=== PATIENT | female | born 1995 | race American Indian/Alaskan Native ===

== ENCOUNTER 2017-07-13 15:06 | Emergency (ER) | payer SELFPAY ==
[2017-07-13 16:41] VITALS: BP 118/74
[2017-07-13 18:46] LABS: Bilirubin,Urine NEG (Negative); Blood,Urine NEG (Negative); Color,Urine Yellow (Yellow); Mucus,Urine 3+ /HPF; RBC,Urine < 1.0 /HPF (0.0-6.0); Urobilinogen,Urine < 2.0 mg/dL (<2.0)
[2017-07-13 18:51] LABS: HCG Qualitative,Urine Positive (Negative)
--- NOTE | 2017-07-13 21:07 | Emergency Department Report ---
Chief Complaint: Abdominal Pain Stated Complaint: ABD PAIN Time Seen by Provider: 07/13/17 19:58 - HPI History of Present Illness: The patient is a 21-year-old female , unknown EGA, who presents for evaluation of abdominal pain. The patient reports cramping lower abdominal pain for the past 2 weeks. She states that her symptoms progressed throughout the past one week, and since she has experienced generalized myalgias. The patient denies fever, chills, night sweats, chest pain, dyspnea, trauma to the abdomen, vaginal bleeding, leakage of fluid from the vagina, vaginal discharge, diarrhea, blood in the stool, dark tarry stool, dysuria, hematuria, flank pain. - Exam Vital Signs: Vital Signs 07/13/17 16:36 Temperature 98.8 F Pulse Rate 85 Respiratory 18 Rate Blood Pressure 118/74 O2 Sat by Pulse 98 Oximetry MSE screening note: Focused history and physical exam performed. Due to findings the following was ordered: ED Medical Decision Making - Medical Decision Making Initial lab tests revealed a positive urine present tests. The patient was informed of positive urine test. She was recommended to receive serum beta hCG and ultrasound of the pelvis to investigate if positive for intrauterine or ectopic . The patient refuses phlebotomy collection of blood and ultrasound secondary to concerns regarding billing. The patient demanded to speak with billing and registration prior to any further diagnostic tests or treatments. The patient is informed of risks of refusal of further care and evaluation, including potential risk of increased morbidity and/or , versus the benefits of further treatment and evaluation of her with ultrasound, and she continued to decline further evaluation or treatment. She was asked by the nursing staff to relocate to the [facility] from the medical screening room while considering whether to proceed with recommended evaluation and treatment plan/while speaking with registration/billing. She refused to relocate, stating that she did not want to relocate to the waiting room because the seats were not comfortable, and that she in fact needed to be placed in a room in the ED more comfortable than the room she was currently in. She was informed of the lack of an additional room due to overcapacity and inability to accommodate her request for more comfortable room/bed. The patient became upset , uncooperative, and belligerent. The patient verbally insulted multiple ED staff and became disruptive to ability of staff to monitor and treat other ED patients. Security was called and the patient became even agitated. As the patient is competent to refuse further care and is refusing to allow further evaluation or treatment, the patient is allowed to leave against medical advice. ED Disposition for MSE Clinical Impression: Abdominal pain, acute Abdominal pain during Qualifiers: Trimester: unspecified trimester Qualified Code(s): O26.899 - Other specified related conditions, unspecified trimester; R10.9 - Unspecified abdominal pain Disposition: LEFT AGAINST MED ADVICE Is pt being admited?: No Does the pt Need Aspirin: No Condition: Stable Instructions: Abdominal Pain (ED) Referrals: PRIMARY CARE, [Primary Care Provider] - 3-5 Days Time of Disposition: 21:09
== END 2017-07-13 20:38 | disposition left against medical advice (07) ==
LOC: ED 15:06
DX: O26.899 Other specified pregnancy related conditions, unspecified trimester (principal); R10.9 Unspecified abdominal pain; Z3A.00 Weeks of gestation of pregnancy not specified
CPT/HCPCS: 81001; 81025; 99283

== ENCOUNTER 2017-09-28 13:20 | Emergency (ER) | payer SELFPAY | END 2017-09-28 14:28 | disposition left against medical advice (07) | LOC: ED 13:20 | DX: Z04.2 Encounter for examination and observation following work accident (principal); Z53.21 Procedure and treatment not carried out due to patient leaving prior to being seen by health care provider ==